=== PATIENT | female | born 1950 ===

== ENCOUNTER 2023-04-11 18:14 | Outpatient (CLI) | payer OTHER, SELFPAY ==
[2023-04-11 16:01] LABS: TSH (W/Ref FT4) 0.67 uIU/mL (0.36-3.74)
[2023-04-12 20:04] LABS: Thyroglobulin Antibody <15 U/mL (<=60); Thyroperoxidase Antibody <28 U/mL (<=60)
== END 2023-04-11 18:15 | disposition home or self-care (01) ==
LOC: LBO 18:15
PROVIDERS: PCP Family Medicine; Visit Provider Registered Nurse Maternal Newborn
DX: E04.9 Nontoxic goiter, unspecified (principal)
CPT/HCPCS: 36415; 86376; 84443

== ENCOUNTER → 2023-05-17 13:02 | Outpatient (CLI) | payer OTHER, SELFPAY ==
--- NOTE | 2023-05-17 11:30 | DI.US_ITS ---
Exam(s) US THYROID US NEEDLE LOCAL OTHER WO RAD EXAM: US NEEDLE LOCAL OTHER WO RAD CLINICAL HISTORY: right-sided thyroid enlargement E04.9 GOITER. COMPARISON: No exams were available for comparison TECHNIQUE: Ultrasound was provided for Dr. Dalton for guidance with performing bilateral thyroid bio psy. FINDINGS: Please see procedure note for details. DATA REPOSITORY:
--- NOTE | 2023-05-17 12:50 | PAPNONF_PTH ---
PATIENT: Margy Shelton LOC: [facility] U#:[id number] AGE/SX: 74/F ROOM: RE05/17/[address]: Palma Henley : 1950 BED: DIS: SPEC #: [id number] RECD: 05/17/23 13:26 STATUS: NOLBERTO REQ #: [id number] WING: 05/17/23 12:[address]: Palma Henley DEPT: [facility] Cytology RECD BY: Emily Lucero ENTERED: 05/17/23 13:28 SP TYPE: KATE TROY DR: Chris Adrian Tissues: 1 - BODY FLUID CYTO-FINE NEEDLE ASPIRATE-[facility] 2 - BODY FLUID CYTO-FINE NEEDLE ASPIRATE-[facility] Procedures: BODY FLUID CYTO-FINE NEEDLE ASPIRATE-[facility] Comments: [id number] (PATH FNA CONSULT) (REFRIGERATED)
--- NOTE | 2023-05-17 13:27 | W.PROCNOTE ---
Date of service: 05/17/23 Time of Service: 13:27 Procedure Note Date of procedure: 05/17/23 Procedure: Ultrasound-guided FNA, bilateral thyroid nodules, pathology present Procedure Diagnosis: Bilateral thyroid nodules meeting criteria for biopsy Procedure Indications: The patient has bilateral thyroid nodules that meet criteria for biopsy. This was discussed with pathology prior to biopsy. Options were explained to the patient regarding further management. She elected to undergo the above procedure. Consent was filled out and signed. Risks including bleeding, infection, need for further biopsies or intervention, and nondiagnostic biopsies were discussed at length. Procedure Description: The patient was positioned in a supine position with her head slightly extended and prepped and draped in appropriate fashion. Ultrasound was used to localize the 2 nodules concerned bilaterally. 1% lidocaine with 1/100,000 epinephrine was injected centrally to allow access to both nodules. The right nodule was approached first. Under ultrasound guidance, a 25-gauge needle was passed repeatedly into the thyroid nodule, and the specimen check for cellularity. After verifying adequate cellularity, 2 additional passes were made for potential Afirma testing. Attention was then turned to the opposite side where the same was performed. The patient tolerated the procedure well. There was no significant bleeding. A sterile dressing was applied and the patient was allowed to sit, stand, and then ambulate. Her vital signs remained stable. She will remove the bandage in 2 hours. She will use ibuprofen or Tylenol for any discomfort. She will call if she does not hear from me with regard to pathology results within the next week. Further treatment will depend upon the findings in pathology
== END ==
PROVIDERS: PCP Family Medicine; Visit Provider Registered Nurse Maternal Newborn
DX: E04.9 Nontoxic goiter, unspecified (principal)
CPT/HCPCS: 10005; 76536; 76942; 88104